=== PATIENT | male | born 1970 | race Caucasian/White ===

== ENCOUNTER → 2017-09-24 | Outpatient (CLI) | payer OTHER ==
--- NOTE | 2017-09-24 12:27 | Diagnostic Imaging Report ---
INDICATION: Lifting a heavy object 2 days ago, felt a tear in left bicep region. EXAM: Sonographic interrogation of the distal left bicep region was performed. FINDINGS: No fluid collection is identified. No definite muscle edema is identified. IMPRESSION: No sonographic abnormality is seen. If there is continued concern for biceps tendon rupture or tear, MRI could be performed for further evaluation. Dictated by: Dictated on workstation # [id number]
== END ==
LOC: RAD 11:26
PROVIDERS: ATTEND Nurse Practitioner Family
DX: S46.202A Unspecified injury of muscle, fascia and tendon of other parts of biceps, left arm, initial encounter (principal); X50.0XXA Overexertion from strenuous movement or load, initial encounter
CPT/HCPCS: 76881